=== PATIENT | female | born 1970 | race Caucasian/White ===

== ENCOUNTER 2016-07-03 09:29 | Emergency (ER) | payer BC, OTHER, SELFPAY ==
[~2016-07-03 09:29] MED LIST: ALPRAZOLAM1 M2 PO; BUSPAR PO; FLOMAX0.4 MG PO; INDERAL20 MG PO; PERCOCET 5MG/AP1 TA1 PO; ZOFRAN ODT4 MG/UDTAB PO
[2016-07-03] MEDS ORDERED: VITAMIN D250000 UNI1 PO (09:38)
[2016-07-03] MEDS ORDERED: BUSPIRONE HCL10 M2 PO (09:38)
[2016-07-03] MEDS ORDERED: TRAZODONE HCL50 M1 PO (09:38)
[2016-07-03] MEDS ORDERED: AMBIEN5 M1 PO (09:38)
[2016-07-03] MEDS ORDERED: TOPAMAX25 M2 PO (09:38)
[2016-07-03] MEDS ORDERED: XANAX1 M1 PO ×2 (09:39→11:31)
[2016-07-03] MEDS ORDERED: ADIPEX-P37.5 M3 PO (09:39)
[2016-07-03 10:18] LABS: BASO % 0.4 % (0-2); EOS % 0.3 % (0-7); HCT-HEMATOCRIT 46.4 % (34.0-49.0); HGB-HEMOGLOBIN 16.5 gm/dl (12.0-15.5); IMMATURE GRANULOCYTES ABSOLUTE 0.01 tho/cmm (0-0.03); IMMATURE GRANULOCYTES PERCENT 0.1 % (0-0.3); LYMPH ABSOLUTE COUNT 2.1 tho/cmm (0.8-4.5); MCH (MEAN CORPUSCULAR HGB) 32.7 pg (28.0-32.0); MCHC MEAN CORPUSCULAR HGB CONC 35.6 % (32.0-36.0); MCV (MEAN CELL VOLUME) 92.1 fl (82.0-96.0); MEAN PLATELET VOLUME 11.1 cmc (9.4-12.4); MONO % 4.9 % (0-12); MONOCYTE ABSOLUTE COUNT 0.4 tho/cmm (0.0-1.2); NEUTROPHILS % 66.3 % (40-80); PLATELET COUNT 254 tho/cmm (150-450); RED BLOOD COUNT 5.04 mil/cmm (4.00-5.20); RED CELL DISTRIBUTION WIDTH 12.1 % (12.4-16.4); WHITE BLOOD COUNT 7.5 tho/cmm (4.0-10.0)
[2016-07-03 10:26] LABS: PREGNANCY-SERUM NEGATIVE (NEGATIVE)
[2016-07-03 10:42] LABS: ALB/GLOB RATIO 1.3 (0.8-2.0); ALBUMIN 4.2 g/dl (3.5-5.0); ALKALINE PHOSPHATASE 73 U/L (33-138); ALT/SGPT 14 U/L (12-78); ANION GAP 15 mmol/L (0-20); AST/SGOT 13 U/L (10-40); BILIRUBIN,TOTAL 0.7 mg/dl (0-1.5); BLOOD UREA NITROGEN 5 mg/dl (6-24); CALCIUM 8.8 mg/dl (8.5-10.5); CARBON DIOXIDE-VENOUS 19 mmol/L (22-32); CHLORIDE 112 mmol/l (96-110); CREATININE 0.67 mg/dl (0.50-1.10); GLUCOSE 97 mg/dL (70-110); LIPASE 159 U/L (73-393); POTASSIUM 3.6 mmol/L (3.7-5.1); SODIUM 142 mmol/L (135-145); eGFR VALUE FOR BLACK >90 mL/Min
[2016-07-03 10:46] LABS: URINE APPEARANCE CLEAR; URINE BILIRUBIN NEGATIVE (NEG); URINE BLOOD NEGATIVE (NEG); URINE COLOR PALE YELLOW; URINE GLUCOSE (UA) NEGATIVE (NEG); URINE KETONE MODERATE (NEG); URINE LEUKOCYTE ESTERASE NEGATIVE (NEG); URINE NITRITE NEGATIVE (NEG); URINE PROTEIN NEGATIVE (NEG); URINE SPECIFIC GRAVITY 1.005 (1.003-1.030)
[2016-07-03] MEDS ORDERED: QUETIAPINE FUMA25 M1 PO (11:34)
[2016-07-03] MEDS ORDERED: MIRALAX17 G2 PO (11:36)
[2016-07-03] MEDS ORDERED: COLACE100 M1 PO (11:36)
[2016-07-03] MEDS ORDERED: MOVANTIK25 MG PO (11:36)
[2016-07-03] MEDS ORDERED: VICTOZA 3-0.6 MG/0.2 SC (11:36)
[2016-09-02] MEDS ORDERED: PROZAC20 M3 PO (11:02)
[2016-09-02] MEDS ORDERED: POTASSIUM CHLO10 ME2 PO (11:04)
[2016-09-02] MEDS ORDERED: LASIX20 M1 PO (11:04)
== END 2016-07-03 15:05 | disposition left against medical advice (07) ==
LOC: EDMED 09:29
PROVIDERS: Emergency Medicine
DX: R10.9 Unspecified abdominal pain (principal); R11.0 Nausea; F41.9 Anxiety disorder, unspecified; Z85.038 Personal history of other malignant neoplasm of large intestine; Z79.899 Other long term (current) drug therapy; F17.200 Nicotine dependence, unspecified, uncomplicated
CPT/HCPCS: J2405; Q9967

== ENCOUNTER 2016-09-04 06:55 | Day surgery (SDC) | payer BC ==
[~2016-09-04 06:55] MED LIST changes: +ADIPEX-P37.5 M3 PO; +AMBIEN5 M1 PO; +BUSPIRONE HCL10 M2 PO; +COLACE100 M1 PO; +LASIX20 M1 PO; +MIRALAX17 G2 PO; +MOVANTIK25 MG PO; +POTASSIUM CHLO10 ME2 PO; +PROZAC20 M3 PO; +QUETIAPINE FUMA25 M1 PO; +TOPAMAX25 M2 PO; +TRAZODONE HCL50 M1 PO; +VICTOZA 3-0.6 MG/0.2 SC; +VITAMIN D250000 UNI1 PO; +XANAX1 M1 PO
[2016-09-04 07:44] LABS: HCT-HEMATOCRIT 44.7 % (34.0-49.0); HGB-HEMOGLOBIN 15.6 gm/dl (12.0-15.5); MCV (MEAN CELL VOLUME) 93.5 fl (82.0-96.0); RED CELL DISTRIBUTION WIDTH 12.1 % (12.4-16.4)
[2016-09-04 08:01] LABS: ANION GAP 12 mmol/L (0-20); BLOOD UREA NITROGEN 7 mg/dl (6-24); CALCIUM 8.4 mg/dl (8.5-10.5); CARBON DIOXIDE-VENOUS 26 mmol/L (22-32); CHLORIDE 105 mmol/l (96-110); CREATININE 0.88 mg/dl (0.50-1.10); GLUCOSE 104 mg/dL (70-110); POTASSIUM 3.8 mmol/L (3.7-5.1); SODIUM 139 mmol/L (135-145); eGFR VALUE FOR BLACK >90 mL/Min
== END 2016-09-04 10:10 ==
LOC: SHSA 06:55 → ENDOS 08:28
PROVIDERS: Anesthesiology
PROC: 0DBM8ZZ Excision of Descending Colon, Via Natural or Artificial Opening Endoscopic (ICD-10-PCS; principal; 2016-09-04)
PROC: 0DBG8ZX Excision of Left Large Intestine, Via Natural or Artificial Opening Endoscopic, Diagnostic (ICD-10-PCS; 2016-09-04)
PROC: 0DBF8ZX Excision of Right Large Intestine, Via Natural or Artificial Opening Endoscopic, Diagnostic (ICD-10-PCS; 2016-09-04)
DX: D12.4 Benign neoplasm of descending colon (principal); K63.89 Other specified diseases of intestine; K64.1 Second degree hemorrhoids; K62.89 Other specified diseases of anus and rectum; K64.4 Residual hemorrhoidal skin tags; F41.9 Anxiety disorder, unspecified; F17.210 Nicotine dependence, cigarettes, uncomplicated; Z79.899 Other long term (current) drug therapy; Z87.442 Personal history of urinary calculi; Z85.038 Personal history of other malignant neoplasm of large intestine; Z98.890 Other specified postprocedural states